=== PATIENT | male | born 1960 | race Caucasian/White ===

== ENCOUNTER 2017-10-31 13:19 | Emergency (ER) | payer BC ==
[~2017-10-31] VITALS: Ht 188 cm; Wt 116.4 kg
[~2017-10-31 13:19] MED LIST: AMLODIPINE BESYL5 MG PO; DAILY MULTIPLE1 EACH PO; FISH OIL 1,0001 EAC7 PO; LANSOPRAZOLE30 MG PO; PAROXETINE HCL40 MG PO; QUINAPRIL HCL40 MG PO
[2017-10-31 13:51] LABS: APPEARANCE SL.HAZY ((CLEAR)); BILIRUBIN NEGATIVE; BLOOD NEGATIVE; COLOR YELLOW ((YELLOW)); GLUCOSE (STRIP) NEGATIVE; KETONES NEGATIVE; LEUKOCYTES NEGATIVE; NITRITE NEGATIVE; PROTEIN (STRIP) NEGATIVE; SPECIFIC GRAVITY 1.011 (1.000-1.030); UROBILINOGEN 0.2 MG/DL (0.2-1.0)
[2017-10-31 13:51] LABS: HEMATOCRIT 42.6 % (38.0-50.0); HEMOGLOBIN 14.8 G/DL (12.5-16.6); MCH 31.1 PG (29.0-34.0); MCHC 34.7 G/DL (30.0-36.0); MCV 89.5 FL (86-99); PLATELET COUNT 305 K/uL (156-360); RBC DIS.WIDTH-SD 39.4 % (39-53); RED BLOOD COUNT 4.76 M/uL (4.00-5.50); WHITE BLOOD COUNT 7.3 K/uL (4.1-10.2)
[2017-10-31 13:53] LABS: BACTERIA RARE /HPF; EPITHELIAL CELLS RARE /HPF; MUCUS TRACE /LPF; RED BLOOD CELLS 0-5 /HPF (0-5); UCUL ADDED? NO; WHITE BLOOD CELLS 0-5 /HPF (0-5)
[2017-10-31 13:59] LABS: ALBUMIN 4.4 g/dL (3.2-4.8); CHLORIDE 107 mEq/L (99-109); POTASSIUM 4.2 mEq/L (3.7-5.4); SODIUM 140 mEq/L (136-147)
[2017-10-31 14:01] LABS: GLUCOSE 120 mg/dL (70-99); TOTAL PROTEIN 7.5 g/dL (6.4-8.3)
[2017-10-31 14:03] LABS: TOTAL BILIRUBIN 0.7 mg/dL (0.0-1.0)
[2017-10-31 14:05] LABS: ALKALINE PHOSPHATASE 88 IU/L (3-129); CREATININE 1.2 mg/dL (0.6-1.3); GFR ESTIMATE (CALCULATED) > 59 mL/min/ (58.99-99999)
[2017-10-31 14:06] LABS: AST (GOT) 29 IU/L (2-34); UREA NITROGEN (BUN) 12 mg/dL (9-23)
[2017-10-31 14:08] LABS: ALT (GPT) 29 IU/L (3-49)
[2017-10-31] MEDS ORDERED: LEVAQUIN750 MG PO (15:18)
[2017-10-31 15:36] VITALS: BP 128/81
== END 2017-10-31 15:37 | disposition home or self-care (01) ==
LOC: EME 13:19
DX: K57.32 Diverticulitis of large intestine without perforation or abscess without bleeding (principal); F41.9 Anxiety disorder, unspecified; I10 Essential (primary) hypertension; K21.9 Gastro-esophageal reflux disease without esophagitis
CPT/HCPCS: 74176; 80053; 81003; 85027; 99281; 99284

== ENCOUNTER 2018-01-04 13:14 | Emergency (ER) | payer BC ==
[~2018-01-04] VITALS: Ht 188 cm; Wt 116.3 kg
[~2018-01-04 13:14] MED LIST changes: +LEVAQUIN750 MG PO
[2018-01-04 14:36] LABS: BILIRUBIN NEGATIVE; BLOOD NEGATIVE; COLOR YELLOW ((YELLOW)); GLUCOSE (STRIP) NEGATIVE; KETONES 5; LEUKOCYTES NEGATIVE; NITRITE NEGATIVE; PROTEIN (STRIP) NEGATIVE; SPECIFIC GRAVITY 1.013 (1.000-1.030); UROBILINOGEN 0.2 MG/DL (0.2-1.0)
[2018-01-04 14:38] LABS: APPEARANCE CLEAR ((CLEAR)); UCUL ADDED? NO
[2018-01-04 14:40] LABS: HEMATOCRIT 40.7 % (38.0-50.0); HEMOGLOBIN 14.2 G/DL (12.5-16.6); MCH 31.2 PG (29.0-34.0); MCHC 34.9 G/DL (30.0-36.0); MCV 89.5 FL (86-99); PLATELET COUNT 274 K/uL (156-360); RBC DIS.WIDTH-CV 12.1 % (11.8-14.6); RBC DIS.WIDTH-SD 39.8 % (39-53); RED BLOOD COUNT 4.55 M/uL (4.00-5.50); WHITE BLOOD COUNT 8.2 K/uL (4.1-10.2)
[2018-01-04 14:48] LABS: ALBUMIN 4.5 g/dL (3.2-4.8)
[2018-01-04 14:49] LABS: CHLORIDE 107 mEq/L (99-109); SODIUM 139 mEq/L (136-147)
[2018-01-04 14:51] LABS: GLUCOSE 93 mg/dL (70-99); TOTAL PROTEIN 7.6 g/dL (6.4-8.3)
[2018-01-04 14:53] LABS: TOTAL BILIRUBIN 1.1 mg/dL (0.0-1.0)
[2018-01-04 14:54] LABS: ALKALINE PHOSPHATASE 99 IU/L (3-129)
[2018-01-04 14:55] LABS: CREATININE 1.1 mg/dL (0.6-1.3); GFR ESTIMATE (CALCULATED) > 59 mL/min/ (58.99-99999)
[2018-01-04 14:56] LABS: AST (GOT) 26 IU/L (2-34); UREA NITROGEN (BUN) 15 mg/dL (9-23)
[2018-01-04 14:58] LABS: ALT (GPT) 24 IU/L (3-49)
[2018-01-04] MEDS ORDERED: AUGMENTIN875 MG PO (15:12)
[2018-01-04] MEDS ORDERED: NAPROXEN500 MG PO (15:12)
[2018-01-04 15:17] VITALS: BP 135/68
== END 2018-01-04 15:18 | disposition home or self-care (01) ==
LOC: EME 13:14
DX: R10.32 Left lower quadrant pain (principal); K57.92 Diverticulitis of intestine, part unspecified, without perforation or abscess without bleeding; I10 Essential (primary) hypertension; K21.9 Gastro-esophageal reflux disease without esophagitis; F41.9 Anxiety disorder, unspecified
CPT/HCPCS: 80053; 81003; 85027; 99281; 99284